=== PATIENT | male | born 1940 | race American Indian/Alaskan Native ===

== ENCOUNTER 2017-07-14 12:26 | Inpatient (IN) | payer BC, MEDICARE ==
[2017-07-14] MEDS ORDERED: CLOPIDOGREL 75 MG TAB ONE (12:30)
[2017-07-14] MEDS ORDERED: NITROGLYCERIN SL TABS 0.4 MG TAB SUBLINGUAL PRN ×3 (12:30→14:18)
[2017-07-14] MEDS ORDERED: HEPARIN SODIUM,PORCINE 5,000 UNIT/ML 1 ML VIAL IV STA (12:30)
[2017-07-14] MEDS ORDERED: HEPARIN SOD,PORK IN 0.45% NACL 25,000 UNIT in 0.45% NACL 1 500ML.BAG IV SCH (12:30)
[2017-07-14] MEDS ORDERED: ASPIRIN 81 MG PO STA (12:30)
[2017-07-14] MEDS ORDERED: SODIUM CHLORIDE 0.9% 1,000 ML IV STA (12:30)
[2017-07-14 12:34] LABS: Glucose,Whole Blood 163 mg/dL (75-99)
--- NOTE | 2017-07-14 12:35 | ED ---
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 No headaches no neck stiffness no chest pain at this moment but he had off-and-on chest pain for last 3 days no abdominal pain no frequency urgency dysuria no symptoms of TIA or CVA - Related Data Allergies Allergy/AdvReac Type Severity Reaction Status Date / Time No Known Allergies Allergy Verified 07/14/17 12:31 Review of Systems ROS Statement: Those systems with pertinent positive or pertinent negative responses have been documented in the HPI. ROS Other: All systems not noted in ROS Statement are negative. EKG Findings - EKG Comments: EKG Findings:: Him EKG is sinus tachycardia ventricular rate is 1 of 5 AR interval is 168 QRS duration is 106 QT/QTC 342/452 review of this EKG reveals ST depression in lead 1 ST elevation in lead [address] depression in aVL and ST depression in V4 V5 and V6 Past Medical History Past Medical History: Hyperlipidemia, Hypertension, Myocardial Infarction (OR) History of Any Multi-Drug Resistant Organisms: None Reported Past Surgical History: Coronary Bypass/CABG Past Psychological History: No Psychological Hx Reported Smoking Status: Never smoker Past Alcohol Use History: None Reported Past Drug Use History: None Reported General Exam - General Exam Comments Initial Comments: General: The patient is awake and alert, in no distress, and does not appear acutely ill. Skin: Skin is warm and dry and no rashes or lesions are noted. Eye: Pupils are equal, round and reactive to light, extra-ocular movements are intact; there is normal conjunctiva bilaterally. Ears, nose, mouth and throat: There are moist mucous membranes and no oral lesions. Neck: The neck is supple, there is no tenderness or JVD. Cardiovascular: There is a regular rate and rhythm. No murmur, rub or gallop is appreciated. Respiratory: To auscultation bilateral, no wheezing no rhonchi no distress respiratory carlisle noticed Gastrointestinal: Soft, non-distended, non-tender abdomen without masses or organomegaly noted. There is no rebound or guarding present. Bowel sounds are unremarkable. Back: There is no tenderness to palpation in the midline. There is no obvious deformity. Musculoskeletal: Normal ROM, no tenderness, There is no pedal edema. There is no calf tenderness or swelling. No cords were appreciated. Neurological: CN II-XII intact, Cranial nerves III through XII are intact. There are no obvious motor or sensory deficits. Coordination appears grossly intact. Speech is normal. Psychiatric: Cooperative, appropriate mood & affect, normal judgment. Limitations: no limitations Course Vital Signs 07/14/17 07/14/17 12:28 12:37 Temperature 98.6 F Pulse Rate 109 H 115 H Respiratory 20 20 Rate Blood Pressure 132/87 135/82 O2 Sat by Pulse 98 96 Oximetry STEMI alert was initiated Dr. tyler is in the ER seeing the patient right now Critical Care Time Total Critical Care Time: 30 Critical Care Time: Patient had aspirin, Plavix, heparin the ER patient is quite stable at this point STEMI By Reviewing the EKG Spoke with the Generation Manager On-Call Generation Manager Came down Daily ER Foot Worker Was Alert and in Patient Is on His Way to the Foot Worker) Disposition Clinical Impression: STEMI (ST elevation myocardial infarction) Disposition: ADMITTED IP TO THIS HOSP Condition: Good Referrals: Tanner Leigh MD [Primary Care Provider] - 1-2 days
[2017-07-14] MEDS ORDERED: ATORVASTATIN 80 MG TAB PO STA (12:36)
[2017-07-14 12:40] LABS: Basophils % (A) 0 %; Eosinophils # (A) 0.2 k/uL (0-0.7); Eosinophils % (A) 2 %; HCT 49.5 % (39.0-53.0); HGB 17.9 gm/dL (13.0-17.5); Lymphocytes # (A) 0.6 k/uL (1.0-4.8); Lymphocytes % (A) 5 %; MCHC 36.1 g/dL (31.0-37.0); Monocytes # (A) 0.3 k/uL (0-1.0); Monocytes % (A) 2 %; Neutrophils # (A) 10.8 k/uL (1.3-7.7); Neutrophils % (A) 90 %; Platelet Count 161 k/uL (150-450); RBC 5.96 m/uL (4.30-5.90); RDW 13.3 % (11.5-15.5); WBC 12.1 k/uL (3.8-10.6)
[2017-07-14] MEDS ORDERED: MORPHINE SULFATE 4 MG/ML SYRINGE IVP PRN (12:43)
--- NOTE | 2017-07-14 12:43 | XR ---
EXAMINATION TYPE: XR chest 1V portable DATE OF EXAM: 07/14/2017 COMPARISON: NONE HISTORY: Chest pain, STEMI TECHNIQUE: Single AP portable frontal upright view of the chest is obtained. FINDINGS: There are reticular interstitial changes bilaterally seen. There is developing right medi al basilar opacity and suspected central vascular congestion. Post CABG changes with mediastinal clip s and sternal wires is present. The cardiac silhouette size is upper limits of normal with atheroscle rotic aorta. The osseous structures are intact. IMPRESSION: Central vascular congestion and mild interstitial edema, suspect fluid overload state. D eveloping basilar infiltrates are difficult to exclude. Progress study advised.
[2017-07-14] MEDS ORDERED: HEPARIN SODIUM,PORCINE/D5W PMX 25,000 UNIT in DEXTROSE/WATER 1 500ML.BAG IV SCH (12:45)
[2017-07-14] MEDS ORDERED: MIDAZOLAM 2 MG/2 ML VIAL ONE (12:46)
[2017-07-14] MEDS ORDERED: LIDOCAINE 2% INJ 20 MG/ML (20 ML MDV) ONE ×3 (12:46→14:05)
[2017-07-14 12:48] LABS: INR 1.2 (<1.2); Partial Thromboplastin Time 22.4 sec (22.0-30.0); Prothrombin Time 11.8 sec (9.0-12.0)
[2017-07-14 12:50] LABS: Albumin 4.3 g/dL (3.5-5.0); Calcium 9.8 mg/dL (8.4-10.2); Potassium 4.9 mmol/L (3.5-5.1); Total Bilirubin 3.3 mg/dL (0.2-1.3); Total Protein 6.8 g/dL (6.3-8.2)
[2017-07-14] MEDS: MIDAZOLAM 2 MG/2 ML VIAL IVP ONE ×2 (12:50→13:25)
[2017-07-14] MEDS ORDERED: LIDOCAINE 2% INJ 20 MG/ML SQ ONE (12:53)
[2017-07-14] MEDS ORDERED: SODIUM CHLORIDE 0.9% 1,000 ML IV ONE ×2 (12:53→13:14)
[2017-07-14] MEDS ORDERED: TIROFIBAN BOLUS 12.5MG/250 ML BAG IV ONE (13:14)
[2017-07-14] MEDS ORDERED: NOREPINEPHRIN 4 MG-0.9% NS PMX 4 MG/250 ML ML IV ONE (13:14)
[2017-07-14] MEDS ORDERED: TIROFIBAN 12.5MG-250ML NS 250 ML IV ONE (13:15)
[2017-07-14 13:17] LABS: Creatine Kinase MB 13.6 ng/mL (0.0-2.4); Troponin I 0.938 ng/mL (0.000-0.034)
[2017-07-14] MEDS ORDERED: IOPAMIDOL-370 125ML BTL INJ ONE (13:47)
[2017-07-14] MEDS ORDERED: TICAGRELOR 90 MG TAB ONE (13:52)
[2017-07-14] MEDS ORDERED: TICAGRELOR 90 MG TAB PO ONE (13:55)
[2017-07-14] MEDS ORDERED: MORPHINE SULFATE 4 MG/ML SYRINGE ONE (14:03)
[2017-07-14] MEDS ORDERED: IOPAMIDOL-250 100ML BTL INTRAARTER ONE (14:10)
[2017-07-14] MEDS ORDERED: MAG HYDROX/AL HYDROX/SIMETH 30 ML CUP PO PRN (14:18)
[2017-07-14] MEDS ORDERED: RX INFO: IV CONTRAST WAS GIVEN 1 EACH MISC MISCELLANE PRN (14:18)
[2017-07-14] MEDS ORDERED: ATROPINE SULFATE 0.1 MG/ML 10ML SYRINGE IV PRN (14:18)
[2017-07-14] MEDS ORDERED: ZOLPIDEM 5 MG TAB PO PRN (14:18)
[2017-07-14] MEDS ORDERED: TIROFIBAN 12.5MG-250ML NS 250 ML IV SCH (14:30)
[2017-07-14 14:33] LABS: Glucose,Whole Blood 169 mg/dL (75-99)
[2017-07-14] MEDS: SODIUM CHLORIDE 0.9% 1,000 ML IV SCH (15:16)
--- NOTE | 2017-07-14 15:23 | CC ---
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 Patient has been sick for last couple of days. According to the patient's correction officer head, patient was chronically confused and unable to give a very detailed history but he says he had been feeling nausea and vomiting and also had some bowel movement and he was quite diaphoretic. EKG was done in the emergency room which shows evidence of old inferior wall GA. There is marked ST-segment elevation noted in the inferior leads and there was ST-segment depression was noted in the lateral leads. This was suggestive of possible acute ST-segment elevation inferior wall myocardial infarction versus extension non ST-segment elevation myocardial infarction involving the circumflex coronary artery branch. In view of the extensive EKG changes and patient's condition, patient was advised emergent cardiac catheterization. The patient's sons were out of the country and I did discuss with the patient's daughter as well as the patient and they wanted to proceed with a cardiac catheterization for definitive diagnosis. PROCEDURE: Right groin was prepped and draped in the usual manner and the skin was infiltrated with 2% Xylocaine. The right femoral artery was entered using Seldinger technique. A #6- Belarusian sheath was placed in. Selective coronary angiography subsequently was done. The left main coronary artery is short and patent. LAD is totally occluded after the origin of the small septal perforators. The circumflex coronary artery is totally occluded in its proximal portion with a slow antegrade filling of the small obtuse marginal branches noted. Right coronary artery was selectively not cannulated but it has been 100% occluded in the past. The patient's three previous vein grafts were identified. One saphenous vein graft to the right coronary is occluded and two other saphenous vein graft stumps were identified. Only 1 saphenous vein graft to the LAD was patent, which has got ostial stenosis of 99% in the previously placed stent. This graft is attached to the diagonal branch and subsequently it also fills the LAD as well as a retrograde filling of the vein graft to the LAD is noted. The DOMINIQUE graft is widely patent and it is attached to the junction of the diagonal and the LAD and there is good filling of the diagonal as well as LAD. There is 70% stenosis at the anastomotic site of the DOMINIQUE to the diagonal and LAD with a good flow noted. RECOMMENDATIONS: The films were reviewed with Dr. Sage Flynn. In view of the above anatomy, with the patient's extent to the lateral wall changes, he proceeded for the stenting of the saphenous vein graft to the diagonal branch. Patient's condition was discussed with the patient's son on the phone. MMANTONINO / MURRAY: [id number] /
[2017-07-14] MEDS ORDERED: NALOXONE 0.4 MG/ML 1 ML VIAL IV PRN (15:49)
[2017-07-14 16:53] LABS: Glucose,Whole Blood 151 mg/dL (75-99)
--- NOTE | 2017-07-14 17:44 | CONS ---
CONSULTATION Dr. 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 The patient in the emergency room was confused unable to give any detailed history. The patient's police booking officer was here. The patient has not been feeling well for last couple of days. He has been having nausea and vomiting yesterday. He was diaphoretic and he was quite confused. The patient was brought to the emergency room. The EKG showed evidence of old inferior wall myocardial infarction. There was ST-segment elevation in the inferior leads and there was diffuse ST-segment depression in the lateral leads suggestive of possible acute ST-segment elevation myocardial infarction versus old inferior wall myocardial infarction and lateral wall TX in the distribution of the circumflex coronary artery. The patient has a prior history of coronary artery bypass surgery x2. The details of which are not available at present. The patient denies any history of having any recent catheterization done. REVIEW OF SYMPTOMS: Review of the system at present no detailed review of the system is available. The patient has a history of Gilbert syndrome. PAST MEDICAL HISTORY: Includes history of coronary artery bypass surgery x2. History of hypertension, hyperlipidemia, and diabetes. ALLERGIES: The patient is ALLERGIC TO MULTIPLE STATINS AND HAS BEEN HAVING A PROBLEM WITH PROXIMAL MUSCLE WEAKNESS. PHYSICAL EXAMINATION: At present in the emergency room reveals a 77-year-old gentleman who was not in any acute distress but was confused feeling weak. The patient's blood pressure was 132/87 mmHg. Oxygen saturation was 98%. HEENT examination was negative. Neck was supple. There was no increase in jugular venous pressure. First and second heart sounds are normal. No significant murmurs were noted. Lungs were clear to auscultation and percussion. Abdomen was negative. Extremities: Peripheral pulses are 2+. LABORATORY DATA: No lab tests are available at present. EKG shows evidence of old inferior wall myocardial infarction with ST-segment elevation in the inferior leads and ST-segment depression in the lateral leads. IMPRESSION: Acute myocardial infarction. This could be a ST-segment elevation myocardial infarction on the top of an old inferior wall myocardial infarction or the patient may have underlying of ventricular aneurysm. There are diffuse ST-segment depression suggestive of at least non ST-segment elevation myocardial infarction. I did discuss the patient's condition with the patient's daughter as well as police booking officer and would recommend urgent cardiac catheterization and consider primary angioplasty. Daughter wanted to proceed with cardiac catheterization. MMODL / IJN: [id number] /
[2017-07-14] MEDS ORDERED: ALPRAZolam 0.25 MG TAB PO PRN (17:47)
[2017-07-14 18:29] LABS: Troponin I 22.2 ng/mL (0.000-0.034)
--- NOTE | 2017-07-14 18:56 | P.HPIM ---
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 Denied any chest pain at this point of time. Patient apparently was having multiple falls recently. Review of Systems REVIEW OF SYSTEMS: CONSTITUTIONAL: No fever, no malaise, no fatigue. HEENT: No recent visual problems or hearing problems. Denied any sore throat. CARDIOVASCULAR: No orthopnea, PND, no palpitations, no syncope. PULMONARY: No shortness of breath, no cough, no hemoptysis. GASTROINTESTINAL: No diarrhea, no nausea, no vomiting, no abdominal pain. Normoactive bowel sounds. NEUROLOGICAL: No headaches, no weakness, no numbness. HEMATOLOGICAL: Denies any bleeding or petechiae. GENITOURINARY: Denies any burning micturition, frequency, or urgency. MUSCULOSKELETAL/RHEUMATOLOGICAL: Denies any joint pain, swelling, or any muscle pain. ENDOCRINE: Denies any polyuria or polydipsia. The rest of the 14-point review of systems is negative. Past Medical History Past Medical History: Coronary Artery Disease (CAD), Chest Pain / Angina, Diabetes Mellitus, GERD/Reflux, Hyperlipidemia, Hypertension, Myocardial Infarction (MO), Prostate Disorder, Thyroid Disorder Additional Past Medical History / Comment(s): Previous MO, Pt has chronic ST elevation, recurrent falls lately, IDDM type II, BPH, hypothyroidism. Last Myocardial Infarction Date:: 07/14/17 History of Any Multi-Drug Resistant Organisms: None Reported Past Surgical History: Coronary Bypass/CABG, Heart Catheterization, Heart Catheterization With Stent Additional Past Surgical History / Comment(s): 07/14/17 PCI with stent in diagonal graft, pt has had CABG done twice with 1st time in 1980- 6 vessel and 2nd time in 1988-4vessel, PCI with stent in 2013, colonoscopy, bilateral cataract removals/lens implants. Past Anesthesia/Blood Transfusion Reactions: No Reported Reaction Date of Last Stent Placement:: 07/14/17 Smoking Status: Never smoker - Past Family History Father Family Medical History: Myocardial Infarction (MO) Additional Family Medical History / Comment(s): Father of a MO at the age of 63 yrs. Mother History Unknown: Yes Additional Family Medical History / Comment(s): Mother when pt was 2 months old. Medications and Allergies Home Medications Medication Instructions Recorded Confirmed Type ALPRAZolam [Xanax] 0.5 mg PO TID PRN 07/14/17 07/14/17 History Alendronate Sodium [Fosamax] 70 mg PO Q7D 07/14/17 07/14/17 History Atenolol [Tenormin] 50 mg PO HS 07/14/17 07/14/17 History Clopidogrel [Plavix] 75 mg PO HS 07/14/17 07/14/17 History Dulaglutide [Trulicity] 1.5 mg SQ Q7D 07/14/17 07/14/17 History Ezetimibe [Zetia] 10 mg PO HS 07/14/17 07/14/17 History Famotidine [Pepcid] 20 mg PO DAILY PRN 07/14/17 07/14/17 History Fenofibrate 54 mg PO HS 07/14/17 07/14/17 History Fexofenadine HCl [Ellie Allergy] 180 mg PO HS PRN 07/14/17 07/14/17 History Levothyroxine Sodium [Synthroid] 200 mcg PO HS 07/14/17 07/14/17 History [place]-3 Acid Ethyl Esters [Lovaza] 1 gm PO HS 07/14/17 07/14/17 History Omeprazole 20 mg PO BID PRN 07/14/17 07/14/17 History Ramipril 10 mg PO HS 07/14/17 07/14/17 History Repaglinide [Prandin] 1 mg PO AC-TID 07/14/17 07/14/17 History Sertraline [Zoloft] 50 mg PO HS 07/14/17 07/14/17 History Vitamin D3(Unknown Dose) 1 tab PO HS 07/14/17 07/14/17 History Allergies Allergy/AdvReac Type Severity Reaction Status Date / Time No Known Allergies Allergy Verified 07/14/17 12:31 Physical Exam Vitals: Vital Signs Temp Pulse Resp BP Pulse Ox 07/14/17 18:00 108 H 18 111/69 95 07/14/17 17:30 107 H 19 118/82 96 07/14/17 16:30 106 H 16 112/75 96 07/14/17 16:15 101 H 22 113/79 96 07/14/17 16:00 104 H 26 H 115/77 96 07/14/17 15:45 104 H 29 H 116/77 96 07/14/17 15:30 102 H 21 112/76 96 07/14/17 15:15 104 H 24 109/73 95 07/14/17 15:14 95 07/14/17 15:00 104 H 18 104/75 97 07/14/17 14:45 97.9 F 101 H 16 97/68 95 07/14/17 12:37 115 H 20 135/82 96 07/14/17 12:28 98.6 F 109 H 20 132/87 98 Intake and Output 07/14/17 07/14/17 07/14/17 06:59 14:59 22:59 Intake Total 686.74 346.8 Output Total 200 200 Balance 486.74 146.8 Intake: IV 686.74 346.8 Sodium Chloride 0.9% 1, 300 000 ml @ 75 mls/hr IV . [id number] JORGE Rx#:[id number] Tirofiban 12.5MG-250Ml Ns 46.8 250 ml @ 0.15 MCG/KG/MIN 11.808 mls/hr IV . [id number] JORGE Rx#:[id number] Output: Urine 200 200 Other: Voiding Method Urinal # Emes[place] 1 Weight 65.6 kg PHYSICAL EXAMINATION: GENERAL: The patient is alert and oriented x3, not in any acute distress. Well developed, well nourished. HEENT: Pupils are round and equally reacting to light. EOMI. No scleral icterus. No conjunctival pallor. Normocephalic, atraumatic. No pharyngeal erythema. No thyromegaly. CARDIOVASCULAR: S1 and S2 present. No murmurs, rubs, or gallops. PULMONARY: Chest is clear to auscultation, no wheezing or crackles. ABDOMEN: Soft, nontender, nondistended, normoactive bowel sounds. No palpable organomegaly. MUSCULOSKELETAL: No joint swelling or deformity. EXTREMITIES: No cyanosis, clubbing, or pedal edema. NEUROLOGICAL: Gross neurological examination did not reveal any focal deficits. SKIN: No rashes. Results CBC & Chem 7: 07/14/17 12:15 07/14/17 12:15 Labs: Abnormal Lab Results - Last 24 Hours (Table) 07/14/17 07/14/17 07/14/17 Range/Units 12:15 12:15 12:15 WBC 12.1 H (3.8-10.6) k/uL RBC 5.96 H (4.30-5.90) m/uL Hgb 17.9 H (13.0-17.5) gm/dL Neutrophils # 10.8 H (1.3-7.7) k/uL Lymphocytes # 0.6 L (1.0-4.8) k/uL INR (<1.2) BUN 22 H (9-20) mg/dL Glucose 176 H (74-99) mg/dL POC Glucose (mg/dL) (75-99) mg/dL Total Bilirubin 3.3 H (0.2-1.3) mg/dL Total Creatine Kinase 205 H (55-170) U/L CK-MB (CK-2) 13.6 H* (0.0-2.4) ng/mL Troponin I 0.938 H* (0.000-0.034) ng/mL 07/14/17 07/14/17 07/14/17 Range/Units 12:15 12:31 14:31 WBC (3.8-10.6) k/uL RBC (4.30-5.90) m/uL Hgb (13.0-17.5) gm/dL Neutrophils # (1.3-7.7) k/uL Lymphocytes # (1.0-4.8) k/uL INR 1.2 H (<1.2) BUN (9-20) mg/dL Glucose (74-99) mg/dL POC Glucose (mg/dL) 163 H 169 H (75-99) mg/dL Total Bilirubin (0.2-1.3) mg/dL Total Creatine Kinase (55-170) U/L CK-MB (CK-2) (0.0-2.4) ng/mL Troponin I (0.000-0.034) ng/mL 07/14/17 07/14/17 Range/Units 16:51 17:37 WBC (3.8-10.6) k/uL RBC (4.30-5.90) m/uL Hgb (13.0-17.5) gm/dL Neutrophils # (1.3-7.7) k/uL Lymphocytes # (1.0-4.8) k/uL INR (<1.2) BUN (9-20) mg/dL Glucose (74-99) mg/dL POC Glucose (mg/dL) 151 H (75-99) mg/dL Total Bilirubin (0.2-1.3) mg/dL Total Creatine Kinase 1364 H (55-170) U/L CK-MB (CK-2) 148.0 H* (0.0-2.4) ng/mL Troponin I 22.200 H* (0.000-0.034) ng/mL Thrombosis Risk Factor Assmnt - Choose All That Apply Any of the Below Risk Factors Present?: Yes Each Factor Represents 1 point: Acute [place] Other Risk Factors: Yes Each Risk Factor Represents 3 Points: Age 75 years or older Other congenital or acquired thrombophilia - If yes, enter type in comment: No Thrombosis Risk Factor Assessment Total Risk Factor Score: 4 Thrombosis Risk Factor Assessment Level: Moderate Risk Assessment and Plan Plan: -Chest pain, ST elevation myocardial infarction: Patient is status post cardiac catheterization and stenting patient is on dual antiplatelet therapy because of low blood pressures start him on low-dose of beta ping lisinopril will be held because of his low blood pressure issue. Echocardiogram will be obtained for tomorrow. Patient had issues with statin in the past because of which she patient will be started on new medications for hyperlipidemia as an outpatient by cardiology -History of coronary artery disease -Type 2 diabetes mellitus, patient is on trulicity which will be continued along with sliding scale here -Hyperlipidemia -Hypertension -Benign prostatic hypertrophy -Hypothyroidism
[2017-07-14 19:01] LABS: Magnesium 1.7 mg/dL (1.6-2.3); Phosphorus 2.4 mg/dL (2.5-4.5)
[2017-07-14] MEDS ORDERED: ONDANSETRON 4 MG/2 ML VIAL IVP PRN ×2 (19:17→19:24)
[2017-07-14] MEDS ORDERED: Magnesium Replacement Protocol 1 EACH MISC MISCELLANE PRN (19:23)
[2017-07-14] MEDS ORDERED: MAGNESIUM SULFATE-D5W PMX 1 GM in DEXTROSE/WATER 1 100ML.BAG IVPB ONE (19:30)
[2017-07-14 20:05] LABS: Glucose,Whole Blood 223 mg/dL (75-99)
[2017-07-14] MEDS: INSULIN ASPART 100 UNIT/ML 1 ML 10 ML VIAL SQ SCH (20:19)
[2017-07-14] MEDS: SERTRALINE 50 MG TAB PO SCH (20:45)
--- NOTE | 2017-07-14 20:50 | CC ---
CARDIAC CATHETERIZATION REPORT DATE OF SERVICE: 07/14/2017 PROCEDURE: Percutaneous transluminal coronary angioplasty and stenting of saphenous vein graft to the major diagonal branch of left anterior descending. PERFORMED BY: Dr. Sage Flynn. Moderate conscious sedation time was for 82 minutes. Patient was administered a combination of Versed, Benadryl and morphine and his oxygen saturation, hemodynamics and EKG were monitored closely. 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 Clinical picture suggested that of acute ischemic syndrome with possibly a diagonal distribution ischemia. He underwent evaluation and coronary angiography by Dr. Nasra Caraballo. I assisted Dr. Caraballo in the performance of coronary angiography. Study revealed that his DOMINIQUE to LAD was patent and was supplying the diagonal branch, which was probably a second diagonal, and the LAD as well. LAD had mild to moderate diffuse disease throughout and it was also opacifying the branches of the circumflex and distal RCA as well. Another vein graft was identified and this vein graft was attached to the diagonal branch with another conduit that jumped to the LAD as well. This was an important graft and this had a 99% stenosis in the proximal portion, including the ostium with haziness suggestive of thrombus and calcification. This appeared to be the culprit lesion. There were at least 3 other vein graft stumps that were identified, were all occluded. He was advised intervention of the diagonal graft with a 99% stenosis calcification and thrombus and I proceeded to perform the intervention expeditiously. PROCEDURE NOTE: The existing 6-Cymraes introducer in the right femoral artery was used to perform the procedure. I used a standard right Alessandro type guide catheter to cannulate the vein graft to the diagonal. I used a Whisper wire and with this I crossed the lesion and kept the wire in the distal branch of the diagonal vessel. I could not advance a 2.5 balloon and therefore I used a 1.5, 12 mm long mini Trek balloon and with this I pre- dilated the lesion and then went to a 2.0 caliber NC Euphora balloon of 12 mm length and this was used to dilate the ostial and proximal lesion. I then advanced a 3.0 caliber 15 mm long NC Trek balloon and inflated up to 14 atmospheres. Significant angiographic improvement was seen with resolution of ST-segment depression in leads I, aVL, and the inferior ST-segment elevation also seemed to improve. The patient was hypotensive very briefly and I used Levophed 2.5 mcg for maybe about 5-7 minutes. IV fluids were also given. Blood pressure was very well maintained, about 110 mmHg systolic. I then felt that the guide support was inadequate to advance the stent and therefore I took the guide out and switched over to a left coronary bypass guide catheter of 6-Cymraes caliber and I had a better seating of the guide within the ostium of the graft. I used a run-through wire and crossed the lesion and wire was kept distally. With the left bypass guide and run-through wire, I then advanced a 3.5 caliber, 18 mm long Xience stent and deployed this with the proximal end of the stent right at the ostium and the distal end into the previously stented segment. Apparently this previous stent was placed more than 10 years ago and the stent was longer, but the proximal half of the stent right from the ostium of the vein graft had a 99% stenosis and therefore the proximal 1/2 or 2/3 of the previous stent now has a 3.5 caliber Xience stent inside it. I deployed it at 16 atmospheres and then I went back with a 15 mm long NC Trek balloon of 4.0 caliber and post dilated this stent. Excellent angiographic result was achieved with a remarkably good SALOME-3 flow that extended both into the diagonal and LAD. The patient received Aggrastat infusion and bolus as per protocol and he also received 180 mg of Brilinta orally. Excellent angiographic result without complication was achieved with remarkably good angiographic appearance of the diagonal and LAD vessels as well as the distal opacification of the collaterals supplying the circumflex and RCA distribution. The sheath was then taken out and a Perclose device used to secure hemostasis. Excellent hemostasis was secured. The patient was hemodynamically stable with excellent angiographic result and he was free of any symptoms of chest discomfort. He was then transferred to the intensive care unit. Findings, details and results were discussed with the patient as well as his daughter who was in the waiting room. I also spoke by phone to both of Dr. Rose's sons, who are also dermatologists. MMODL / IJN: [id number] /
[2017-07-14] MEDS ORDERED: METOPROLOL TARTRATE 25 MG TAB PO SCH (21:00)
[2017-07-14] MEDS ORDERED: METOPROLOL TARTRATE 12.5 MG TAB PO SCH (21:00)
[2017-07-14 21:04] LABS: Glucose,Whole Blood 159 mg/dL (75-99)
[2017-07-14] MEDS: LEVOTHYROXINE 100 MCG TAB PO SCH (23:00)
[2017-07-15 01:08] LABS: Troponin I 50.2 ng/mL (0.000-0.034)
[2017-07-15] MEDS: SODIUM CHLORIDE 0.9% 1,000 ML IV SCH (03:12)
[2017-07-15 06:00] LABS: Basophils % (A) 0 %; Eosinophils # (A) 0.1 k/uL (0-0.7); Eosinophils % (A) 1 %; HGB 16.3 gm/dL (13.0-17.5); Lymphocytes % (A) 9 %; MCH 29.3 pg (25.0-35.0); MCHC 33.9 g/dL (31.0-37.0); MCV 86.6 fL (80.0-100.0); Mean Platelet Volume 8.1; Monocytes # (A) 0.6 k/uL (0-1.0); Monocytes % (A) 5 %; Neutrophils # (A) 9.2 k/uL (1.3-7.7); Neutrophils % (A) 84 %; Platelet Count 166 k/uL (150-450); RBC 5.55 m/uL (4.30-5.90); RDW 13.4 % (11.5-15.5)
[2017-07-15 06:34] LABS: Calcium 9.2 mg/dL (8.4-10.2); Potassium 4.8 mmol/L (3.5-5.1)
[2017-07-15 06:49] LABS: T4, Free (Free Thyroxine) 1.58 ng/dL (0.78-2.19)
[2017-07-15 06:57] LABS: Glucose,Whole Blood 122 mg/dL (75-99)
[2017-07-15] MEDS ORDERED: REPAGLINIDE 1 MG TAB PO SCH (07:30)
[2017-07-15 07:42] LABS: Troponin I 51.5 ng/mL (0.000-0.034)
[2017-07-15] MEDS: INSULIN ASPART 100 UNIT/ML 1 ML 10 ML VIAL SQ SCH ×4 (08:33→21:10)
[2017-07-15] MEDS: PANTOPRAZOLE 40 MG/10 ML VIAL IVP SCH (08:40)
[2017-07-15] MEDS: ASPIRIN 81 MG PO SCH (08:40)
[2017-07-15] MEDS: TICAGRELOR 90 MG TAB PO SCH ×2 (08:41→21:07)
[2017-07-15] MEDS: LEVOTHYROXINE 100 MCG TAB PO SCH (08:42)
[2017-07-15] MEDS ORDERED: ATORVASTATIN 20 MG TAB PO SCH ×3 (09:00→21:00)
[2017-07-15] MEDS ORDERED: METOPROLOL TARTRATE 50 MG TAB PO ONE (09:00)
[2017-07-15] MEDS ORDERED: LISINOPRIL 10 MG TAB PO SCH ×2 (09:00)
[2017-07-15] MEDS ORDERED: LISINOPRIL 5 MG TAB PO SCH (09:00)
[2017-07-15] MEDS ORDERED: ASPIRIN 325 MG TAB PO SCH ×2 (09:00)
[2017-07-15] MEDS: REPAGLINIDE 1 MG TAB PO SCH ×3 (09:30→17:59)
[2017-07-15 11:44] LABS: Glucose,Whole Blood 180 mg/dL (75-99)
[2017-07-15] MEDS: ALPRAZolam 0.25 MG TAB PO PRN ×2 (12:18→21:07)
[2017-07-15 14:03] VITALS: BMI 26.6
--- NOTE | 2017-07-15 14:05 | ECHOF ---
Referral Reason:Posterolat NSTEMI, PCI of Diag graft MEASUREMENTS -------- HEIGHT: 167.6 cm WEIGHT: 65.3 kg BP: 104/64 IVSd: 1.0 cm (0.6 - 1.1) LVIDd: 5.0 cm (3.9 - 5.3) LVPWd: 1.1 cm (0.6 - 1.1) IVSs: 1.7 cm LVIDs: 3.9 cm LVPWs: 1.3 cm LAESV Index (A-L): 20.00 ml/m Ao Diam: 3.7 cm (2.0 - 3.7) AV Cusp: 1.4 cm (1.5 - 2.6) LA Diam: 3.6 cm (2.7 - 3.8) MV EXCURSION: 18.395 mm (> 18.000) MV EF SLOPE: 100 mm/s (70 - 150) EPSS: 1.1 cm AV maxP.95 mmHg AV meanP.99 mmHg AR PHT: 287 ms RAP: 5.00 mmHg RVSP: 13.09 mmHg FINDINGS -------- Sinus rhythm. This was a technically good study. The left ventricular size is normal. Left ventricular wall thickness is normal. Overall left vent ricular systolic function is moderately impaired with, an EF between 35 - 40 %. Basal anterior LV w all motion is hypokinetic. Basal inferoseptal LV wall motion is hypokinetic. Mid inferoseptal L V wall motion is hypokinetic. Inferiorlateral Hypokinesis The right ventricle is normal in size and function. The left atrium is normal in size. The right atrium is normal in size. Aortic valve is trileaflet and is mildly thickened. There is mild aortic valve sclerosis. There i s mild aortic regurgitation. Peak/mean gradient across the Aortic Valve is 9.95mmHg / 5.99mmHg. The mitral valve leaflets are mildly thickened. Mild mitral regurgitation is present. Mild tricuspid regurgitation present. The right ventricular systolic pressure, as measured by Doppl er, is 13.09mmHg. Pulmonic valve appears structurally normal. The aortic root size is normal. The pericardium is normal. CONCLUSIONS -------- 1. Sinus rhythm. 2. This was a technically good study. 3. The left ventricular size is normal. 4. Left ventricular wall thickness is normal. 5. Overall left ventricular systolic function is moderately impaired with, an EF between 35 - 40 %. 6. Basal anterior LV wall motion is hypokinetic. 7. Basal inferoseptal LV wall motion is hypokinetic. 8. Mid inferoseptal LV wall motion is hypokinetic. 9. Inferiorlateral Hypokinesis 10. The right ventricle is normal in size and function. 11. The left atrium is normal in size. 12. The right atrium is normal in size. 13. Aortic valve is trileaflet and is mildly thickened. 14. There is mild aortic valve sclerosis. 15. There is mild aortic regurgitation. 16. Peak/mean gradient across the Aortic Valve is 9.95mmHg / 5.99mmHg. 17. The mitral valve leaflets are mildly thickened. 18. Mild mitral regurgitation is present. 19. Mild tricuspid regurgitation present. 20. The right ventricular systolic pressure, as measured by Doppler, is 13.09mmHg. 21. Pulmonic valve appears structurally normal. 22. The aortic root size is normal. 23. The pericardium is normal. ROOF SERVICE TECHNICIAN: Lanie Durbin RDCS
--- NOTE | 2017-07-15 14:13 | P.PN ---
Subjective 77-year-old male admitted for the ST elevation microinfarction underwent stenting of saphenous vein graft to diagonal branch. Patient heart rate is in 90s. His energy is on beta ping patient blood pressure is borderline but still and miserable because of the ejection fraction which is low at 35-40%. Does have episodes of anxiety patient's Xanax dose frequency was increased. Constitutional: Denied any fatigue denied any fever. Cardio vascular: denied any chest pain, palpitations Gastrointestinal denied any nausea vomiting Pulmonary: Denied any shortness of breath cough Neurologic denied any new focal deficits Objective - Vital Signs Vital signs: Vital Signs Temp 98.2 F 07/15/17 12:00 Pulse 90 07/15/17 14:00 Resp 21 07/15/17 14:00 BP 116/71 07/15/17 14:00 Pulse Ox 93 L 07/15/17 14:00 Intake & Output 07/14/17 07/15/17 07/15/17 18:59 06:59 18:59 Intake Total 1033.54 994.3 630 Output Total 400 700 150 Balance 633.54 294.3 480 Weight 65.6 kg 74.8 kg 74.8 kg Intake: IV 1033.54 994.3 150 Sodium Chloride 0.9% 1, 300 900 150 000 ml @ 75 mls/hr IV . [id number] [facility] Rx#:[id number] Tirofiban 12.5MG-250Ml Ns 46.8 94.3 250 ml @ 0.15 MCG/KG/MIN 11.808 mls/hr IV . [id number] [facility] Rx#:[id number] Oral 480 Output: Urine 400 700 150 Other: Voiding Method Urinal Urinal Urinal # Emeses 1 0 - Exam PHYSICAL EXAMINATION: GENERAL: The patient is alert and oriented x3, not in any acute distress. Well developed, well nourished. HEENT: Pupils are round and equally reacting to light. EOMI. No scleral icterus. No conjunctival pallor. Normocephalic, atraumatic. No pharyngeal erythema. No thyromegaly. CARDIOVASCULAR: S1 and S2 present. No murmurs, rubs, or gallops. PULMONARY: Chest is clear to auscultation, no wheezing or crackles. ABDOMEN: Soft, nontender, nondistended, normoactive bowel sounds. No palpable organomegaly. MUSCULOSKELETAL: No joint swelling or deformity. EXTREMITIES: No cyanosis, clubbing, or pedal edema. NEUROLOGICAL: Gross neurological examination did not reveal any focal deficits. SKIN: No rashes. - Labs CBC & Chem 7: 07/15/17 05:18 07/15/17 05: Labs: Abnormal Lab Results - Last 24 Hours (Table) 07/14/17 07/14/17 07/14/17 Range/Units 12:15 14:31 16:51 WBC (3.8-10.6) k/uL Neutrophils # (1.3-7.7) k/uL Sodium (137-145) mmol/L Carbon Dioxide (22-30) mmol/L Glucose (74-99) mg/dL POC Glucose (mg/dL) 169 H 151 H (75-99) mg/dL Phosphorus 2.4 L (2.5-4.5) mg/dL Creatine Kinase (55-170) U/L Total Creatine Kinase (55-170) U/L CK-MB (CK-2) (0.0-2.4) ng/mL Troponin I (0.000-0.034) ng/mL 07/14/17 07/14/17 07/14/17 Range/Units 17:37 20:04 21:02 WBC (3.8-10.6) k/uL Neutrophils # (1.3-7.7) k/uL Sodium (137-145) mmol/L Carbon Dioxide (22-30) mmol/L Glucose (74-99) mg/dL POC Glucose (mg/dL) 223 H 159 H (75-99) mg/dL Phosphorus (2.5-4.5) mg/dL Creatine Kinase (55-170) U/L Total Creatine Kinase 1364 H (55-170) U/L CK-MB (CK-2) 148.0 H* (0.0-2.4) ng/mL Troponin I 22.200 H* (0.000-0.034) ng/mL 07/14/17 07/15/17 07/15/17 Range/Units 23:54 05:18 05:18 WBC 11.0 H (3.8-10.6) k/uL Neutrophils # 9.2 H (1.3-7.7) k/uL Sodium 136 L (137-145) mmol/L Carbon Dioxide 20 L (22-30) mmol/L Glucose 119 H (74-99) mg/dL POC Glucose (mg/dL) (75-99) mg/dL Phosphorus (2.5-4.5) mg/dL Creatine Kinase (55-170) U/L Total Creatine Kinase 2371 H (55-170) U/L CK-MB (CK-2) 161.0 H* (0.0-2.4) ng/mL Troponin I 50.200 H* (0.000-0.034) ng/mL 07/15/17 07/15/17 07/15/17 Range/Units :18 05:18 06:54 WBC (3.8-10.6) k/uL Neutrophils # (1.3-7.7) k/uL Sodium (137-145) mmol/L Carbon Dioxide (22-30) mmol/L Glucose (74-99) mg/dL POC Glucose (mg/dL) 122 H (75-99) mg/dL Phosphorus (2.5-4.5) mg/dL Creatine Kinase 2182 H (55-170) U/L Total Creatine Kinase (55-170) U/L CK-MB (CK-2) 129.0 H* (0.0-2.4) ng/mL Troponin I 51.500 H* (0.000-0.034) ng/mL 07/15/17 Range/Units 11:42 WBC (3.8-10.6) k/uL Neutrophils # (1.3-7.7) k/uL Sodium (137-145) mmol/L Carbon Dioxide (22-30) mmol/L Glucose (74-99) mg/dL POC Glucose (mg/dL) 180 H (75-99) mg/dL Phosphorus (2.5-4.5) mg/dL Creatine Kinase (55-170) U/L Total Creatine Kinase (55-170) U/L CK-MB (CK-2) (0.0-2.4) ng/mL Troponin I (0.000-0.034) ng/mL Assessment and Plan Plan: -Chest pain, ST elevation myocardial infarction: Patient is status post cardiac catheterization and stenting patient is on dual antiplatelet therapy because of low blood pressures start him on low-dose of beta ping . echocardiogram did show low ejection fraction and patient is also on lisinopril because of that. -congestive heart failure possibly acute systolic dysfunction not in acute exacerbation -History of coronary artery disease -Type 2 diabetes mellitus, patient is on trulicity which will be continued along with sliding scale here -Hyperlipidemia -Hypertension -Benign prostatic hypertrophy -Hypothyroidism
[2017-07-15 14:48] LABS: Hemoglobin A1C 6.2 % (4.0-6.0)
[2017-07-15] MEDS ORDERED: FUROSEMIDE 10 MG/ML 2 ML VIAL IV ONE (15:37)
[2017-07-15 15:42] LABS: Creatine Kinase 1304 U/L (55-170)
[2017-07-15] MEDS ORDERED: ALPRAZolam 0.25 MG TAB PO SCH (16:00)
[2017-07-15] MEDS ORDERED: LIDOCAINE URO-JET JELLY 2% 5 ML KIT URETHRAL ONE (16:08)
[2017-07-15 16:13] LABS: Creatine Kinase MB 42.7 ng/mL (0.0-2.4)
[2017-07-15 17:01] LABS: Appearance,Urine Clear (Clear); Bilirubin,Urine Negative (Negative); Blood,Urine Large (Negative); Color,Urine Yellow; Glucose,Urine (UA) Negative (Negative); Ketones,Urine Negative (Negative); Leukocyte Esterase,Urine Negative (Negative); Mucus,Urine Rare /hpf; Nitrite,Urine Negative (Negative); PH, Urine 5.5 (5.0-8.0); Protein,Urine Negative (Negative); RBC,Urine 109 /hpf (0-5); Specific Gravity,Urine 1.017 (1.001-1.035); Squamous Epithelial Cell,Urine <1 /hpf (0-4); Urobilinogen,Urine <2.0 mg/dL (<2.0); WBC,Urine 19 /hpf (0-5)
[2017-07-15 17:22] LABS: Glucose,Whole Blood 102 mg/dL (75-99)
[2017-07-15] MEDS: TAMSULOSIN 0.4 MG CAP.ER.24H PO SCH (17:59)
--- NOTE | 2017-07-15 19:57 | PN ---
PROGRESS NOTE DATE OF SERVICE: 07/15/2017. HISTORY: The patient came with an acute myocardial infarction. The patient underwent cardiac catheterization, and the patient underwent stent to the saphenous vein graft to the diagonal branch. The patient is feeling well. He is sitting comfortably in the bed. Denies any chest pain or shortness of breath. Denies any nausea or vomiting. PHYSICAL EXAM: Blood pressure 117/71 mmHg. Respirations are not labored. First and second heart sounds are normal. Lungs are clinically clear to auscultation and percussion. LABORATORY AND DIAGNOSTIC DATA: Patient's hemoglobin is 16.3. Troponin is 51 and CPK was 2370. 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 Patient had one episode of nonsustained tachycardia last night. ASSESSMENT AND PLAN: The patient clinically remains stable. We will increase the dose of Lopressor to 25 mg b.i.d. The patient will be ambulated in the room. The patient had paroxysmal muscle weakness with statin in the past. The patient is being followed at [facility] and has . MMODL / IJN: [id number] /
[2017-07-15 20:36] LABS: Glucose,Whole Blood 160 mg/dL (75-99)
[2017-07-15] MEDS ORDERED: EZETIMIBE 10 MG TAB PO SCH (21:00)
[2017-07-15] MEDS ORDERED: FENOFIBRATE 54 MG TAB PO SCH (21:00)
[2017-07-15] MEDS: ATORVASTATIN 20 MG TAB PO SCH (21:07)
[2017-07-15] MEDS: SERTRALINE 50 MG TAB PO SCH (21:08)
[2017-07-15] MEDS: LISINOPRIL 5 MG TAB PO SCH (21:08)
[2017-07-15] MEDS: METOPROLOL TARTRATE 25 MG TAB PO SCH (21:08)
[2017-07-16 04:53] LABS: Basophils % (A) 0 %; Eosinophils # (A) 0.2 k/uL (0-0.7); Eosinophils % (A) 2 %; HGB 16.5 gm/dL (13.0-17.5); Lymphocytes # (A) 1.2 k/uL (1.0-4.8); Lymphocytes % (A) 13 %; MCH 29.6 pg (25.0-35.0); MCHC 35.2 g/dL (31.0-37.0); MCV 84.2 fL (80.0-100.0); Mean Platelet Volume 7.9; Monocytes # (A) 0.6 k/uL (0-1.0); Monocytes % (A) 6 %; Neutrophils # (A) 7.2 k/uL (1.3-7.7); Neutrophils % (A) 78 %; Platelet Count 142 k/uL (150-450); RBC 5.58 m/uL (4.30-5.90); RDW 13.1 % (11.5-15.5); WBC 9.3 k/uL (3.8-10.6)
[2017-07-16 05:14] LABS: Calcium 9.5 mg/dL (8.4-10.2); Phosphorus 3.3 mg/dL (2.5-4.5)
[2017-07-16 07:05] LABS: Glucose,Whole Blood 114 mg/dL (75-99)
[2017-07-16] MEDS: INSULIN ASPART 100 UNIT/ML 1 ML 10 ML VIAL SQ SCH ×4 (07:45→20:47)
[2017-07-16] MEDS: PANTOPRAZOLE 40 MG/10 ML VIAL IVP SCH (07:45)
[2017-07-16] MEDS: REPAGLINIDE 1 MG TAB PO SCH ×3 (07:45→17:28)
[2017-07-16] MEDS: LEVOTHYROXINE 100 MCG TAB PO SCH (07:45)
[2017-07-16] MEDS: ASPIRIN 81 MG PO SCH (07:46)
[2017-07-16] MEDS: TICAGRELOR 90 MG TAB PO SCH ×2 (07:46→20:39)
[2017-07-16] MEDS: METOPROLOL TARTRATE 25 MG TAB PO SCH (07:46)
[2017-07-16 11:29] LABS: Glucose,Whole Blood 149 mg/dL (75-99)
--- NOTE | 2017-07-16 14:06 | P.PN ---
Subjective 77-year-old male admitted for the ST elevation microinfarction underwent stenting of saphenous vein graft to diagonal branch. Patient heart rate is in 90s. His energy is on beta ping patient blood pressure is borderline but still and miserable because of the ejection fraction which is low at 35-40%. Does have episodes of anxiety patient's Xanax dose frequency was increased. 07/16/2017 No overnight events, patient has a [place] catheter in place which are remote will do voiding trial. Patient is not in CHF exacerbation at this time no chest pain. Blood pressure stable with KAREN inhibitor and beta ping. Constitutional: Denied any fatigue denied any fever. Cardio vascular: denied any chest pain, palpitations Gastrointestinal denied any nausea vomiting Pulmonary: Denied any shortness of breath cough Neurologic denied any new focal deficits Objective - Vital Signs Vital signs: Vital Signs Temp 97.9 F 07/16/17 12:00 Pulse 72 07/16/17 12:00 Resp 16 07/16/17 12:00 BP 116/70 07/16/17 12:00 Pulse Ox 98 07/16/17 12:00 Intake & Output 07/15/17 07/16/17 07/16/17 18:59 06:59 18:59 Intake Total 630 600 480 Output Total 825 1115 520 Balance -195 -515 -40 Weight 74.8 kg 72.5 kg Intake: IV 150 Sodium Chloride 0.9% 1, 150 000 ml @ 75 mls/hr IV . [id number] [facility] Rx#:[id number] Oral 480 600 480 Output: Urine 825 1115 520 Other: Voiding Method Urinal Urinal Indwelling Catheter - Exam PHYSICAL EXAMINATION: GENERAL: The patient is alert and oriented x3, not in any acute distress. Well developed, well nourished. HEENT: Pupils are round and equally reacting to light. EOMI. No scleral icterus. No conjunctival pallor. Normocephalic, atraumatic. No pharyngeal erythema. No thyromegaly. CARDIOVASCULAR: S1 and S2 present. No murmurs, rubs, or gallops. PULMONARY: Chest is clear to auscultation, no wheezing or crackles. ABDOMEN: Soft, nontender, nondistended, normoactive bowel sounds. No palpable organomegaly. MUSCULOSKELETAL: No joint swelling or deformity. EXTREMITIES: No cyanosis, clubbing, or pedal edema. NEUROLOGICAL: Gross neurological examination did not reveal any focal deficits. SKIN: No rashes. - Labs CBC & Chem 7: 07/16/17 04:24 07/16/17 04:24 Labs: Abnormal Lab Results - Last 24 Hours (Table) 07/15/17 07/15/17 07/15/17 Range/Units 05:18 15:03 16:27 Plt Count (150-450) k/uL Sodium (137-145) mmol/L BUN (9-20) mg/dL Glucose (74-99) mg/dL POC Glucose (mg/dL) (75-99) mg/dL Hemoglobin A1c 6.2 H (4.0-6.0) % Total Creatine Kinase 1304 H (55-170) U/L CK-MB (CK-2) 42.7 H* (0.0-2.4) ng/mL Troponin I (0.000-0.034) ng/mL Urine Blood Large H (Negative) Urine RBC 109 H (0-5) /hpf Urine WBC 19 H (0-5) /hpf Urine Mucus Rare H (None) /hpf 07/15/17 07/15/17 07/15/17 Range/Units 16:30 17:20 20:35 Plt Count (150-450) k/uL Sodium (137-145) mmol/L BUN (9-20) mg/dL Glucose (74-99) mg/dL POC Glucose (mg/dL) 102 H 160 H (75-99) mg/dL Hemoglobin A1c (4.0-6.0) % Total Creatine Kinase (55-170) U/L CK-MB (CK-2) (0.0-2.4) ng/mL Troponin I 31.400 H* (0.000-0.034) ng/mL Urine Blood (Negative) Urine RBC (0-5) /hpf Urine WBC (0-5) /hpf Urine Mucus (None) /hpf 07/16/17 07/16/17 07/16/17 Range/Units 04:24 04:24 07:03 Plt Count 142 L (150-450) k/uL Sodium 136 L (137-145) mmol/L BUN 26 H (9-20) mg/dL Glucose 111 H (74-99) mg/dL POC Glucose (mg/dL) 114 H (75-99) mg/dL Hemoglobin A1c (4.0-6.0) % Total Creatine Kinase (55-170) U/L CK-MB (CK-2) (0.0-2.4) ng/mL Troponin I (0.000-0.034) ng/mL Urine Blood (Negative) Urine RBC (0-5) /hpf Urine WBC (0-5) /hpf Urine Mucus (None) /hpf 07/16/17 Range/Units 11:27 Plt Count (150-450) k/uL Sodium (137-145) mmol/L BUN (9-20) mg/dL Glucose (74-99) mg/dL POC Glucose (mg/dL) 149 H (75-99) mg/dL Hemoglobin A1c (4.0-6.0) % Total Creatine Kinase (55-170) U/L CK-MB (CK-2) (0.0-2.4) ng/mL Troponin I (0.000-0.034) ng/mL Urine Blood (Negative) Urine RBC (0-5) /hpf Urine WBC (0-5) /hpf Urine Mucus (None) /hpf Microbiology - Last 24 Hours (Table) 07/15/17 16:27 Urine Culture - Preliminary Urine,Catheterized Assessment and Plan Plan: -Chest pain, ST elevation myocardial infarction: Patient is status post cardiac catheterization and stenting patient is on dual antiplatelet therapy because of low blood pressures start him on low-dose of beta ping . echocardiogram did show low ejection fraction and patient is also on lisinopril because of that. -congestive heart failure possibly acute systolic dysfunction not in acute exacerbation -History of coronary artery disease -Type 2 diabetes mellitus, patient is on trulicity which will be continued along with sliding scale here -Hyperlipidemia -Hypertension -Benign prostatic hypertrophy, urinary retention patient was resumed on Flomax discontinue [place] catheter voiding trial today -Hypothyroidism
[2017-07-16 15:05] LABS: Magnesium 1.9 mg/dL (1.6-2.3); Potassium 4.3 mmol/L (3.5-5.1)
[2017-07-16 17:23] LABS: Glucose,Whole Blood 97 mg/dL (75-99)
--- NOTE | 2017-07-16 18:58 | PN ---
PROGRESS NOTE This patient had inferior lateral myocardial infarction. He is recovering well. . He is to be able to get up himself from the chair. The patient's family members express that they will prefer to take him home. Heart rate is 82 per minute. First and second heart sounds are normal. Lungs are fairly clear to auscultation and percussion. Potassium is 3.2. Patient's Lopressor is increased to 50 mg b.i.d. We will continue the rest of the medications. If patient remains stable, the patient can be discharged home tomorrow. MMODL / IJN: [id number] /
[2017-07-16 19:37] LABS: Glucose,Whole Blood 184 mg/dL (75-99)
[2017-07-16] MEDS: SERTRALINE 50 MG TAB PO SCH (20:38)
[2017-07-16] MEDS: ATORVASTATIN 20 MG TAB PO SCH (20:39)
[2017-07-16] MEDS: TAMSULOSIN 0.4 MG CAP.ER.24H PO SCH (20:39)
[2017-07-16] MEDS: LISINOPRIL 5 MG TAB PO SCH (20:39)
[2017-07-16] MEDS: METOPROLOL TARTRATE 50 MG TAB PO SCH (20:40)
[2017-07-17 07:46] LABS: Glucose,Whole Blood 126 mg/dL (75-99)
[2017-07-17] MEDS: TICAGRELOR 90 MG TAB PO SCH (08:02)
[2017-07-17] MEDS: REPAGLINIDE 1 MG TAB PO SCH ×3 (08:02→17:45)
[2017-07-17] MEDS: PANTOPRAZOLE 40 MG/10 ML VIAL IVP SCH (08:02)
[2017-07-17] MEDS: METOPROLOL TARTRATE 50 MG TAB PO SCH (08:02)
[2017-07-17] MEDS: INSULIN ASPART 100 UNIT/ML 1 ML 10 ML VIAL SQ SCH ×3 (08:02→18:45)
[2017-07-17] MEDS: ASPIRIN 81 MG PO SCH (08:02)
[2017-07-17] MEDS: LEVOTHYROXINE 100 MCG TAB PO SCH (08:02)
[2017-07-17 08:40] LABS: Basophils % (A) 0 %; Eosinophils # (A) 0.3 k/uL (0-0.7); Eosinophils % (A) 3 %; HCT 50.4 % (39.0-53.0); HGB 17.4 gm/dL (13.0-17.5); Lymphocytes # (A) 1.1 k/uL (1.0-4.8); Lymphocytes % (A) 10 %; MCH 29.6 pg (25.0-35.0); MCHC 34.5 g/dL (31.0-37.0); MCV 85.7 fL (80.0-100.0); Mean Platelet Volume 7.6; Monocytes # (A) 0.6 k/uL (0-1.0); Monocytes % (A) 5 %; Neutrophils # (A) 8.8 k/uL (1.3-7.7); Neutrophils % (A) 80 %; Platelet Count 168 k/uL (150-450); RBC 5.88 m/uL (4.30-5.90); RDW 13.3 % (11.5-15.5)
[2017-07-17 08:45] LABS: Calcium 9.7 mg/dL (8.4-10.2); Magnesium 1.8 mg/dL (1.6-2.3); Potassium 4.8 mmol/L (3.5-5.1)
--- NOTE | 2017-07-17 17:01 | P.DS ---
Providers Date of admission: 07/14/17 12:52 Attending physician: Mercedez Vaughn MD Consults: 07/14/17 12:31 Consult Physician Stat Consulting Provider: Partha Ferrell Consult Reason/Comments: STEMI ACTIVATION COMPLETE Do you want consulting provider notified?: Yes 07/14/17 12:43 Consult Physician Urgent Consulting Provider: Brandon Caraballo Consult Reason/Comments: STEMI Do you want consulting provider notified?: Yes 07/14/17 14:18 Consult Physician Routine Consulting Provider: Partha Ferrell Consult Reason/Comments: Post Interventional patient Do you want consulting provider notified?: Already Contacted Primary care physician: [facility] Hospital Course: 77-year-old male admitted for the ST elevation microinfarction underwent stenting of saphenous vein graft to diagonal branch. Patient heart rate is in 90s. His energy is on beta ping patient blood pressure is borderline but still and miserable because of the ejection fraction which is low at 35-40%. Does have episodes of anxiety patient's Xanax dose frequency was increased. 07/16/2017 No overnight events, patient has a [place] catheter in place which are remote will do voiding trial. Patient is not in CHF exacerbation at this time no chest pain. Blood pressure stable with KAREN inhibitor and beta ping. 07/17/2017 Patient is urinating okay without any problem today patient does have congestive heart failure chronic systolic dysfunction mildly depressed ejection fraction probably due to acute myocardial infarction. Patient will be discharged today PHYSICAL EXAMINATION: GENERAL: The patient is alert and oriented x3, not in any acute distress. Well developed, well nourished. HEENT: Pupils are round and equally reacting to light. EOMI. No scleral icterus. No conjunctival pallor. Normocephalic, atraumatic. No pharyngeal erythema. No thyromegaly. CARDIOVASCULAR: S1 and S2 present. No murmurs, rubs, or gallops. PULMONARY: Chest is clear to auscultation, no wheezing or crackles. ABDOMEN: Soft, nontender, nondistended, normoactive bowel sounds. No palpable organomegaly. MUSCULOSKELETAL: No joint swelling or deformity. EXTREMITIES: No cyanosis, clubbing, or pedal edema. NEUROLOGICAL: Gross neurological examination did not reveal any focal deficits. SKIN: No rashes. Assessment and Plan Plan: -Chest pain, ST elevation myocardial infarction: Patient is status post cardiac catheterization t. -congestive heart failure possibly acute systolic dysfunction not in acute exacerbation -History of coronary artery disease -Type 2 diabetes mellitus, patient is on trulicity and Prandin which will be continued -Hyperlipidemia -Hypertension -Benign prostatic hypertrophy, urinary retention resolved now -Hypothyroidism Patient Condition at Discharge: Good Plan - Discharge Summary Discharge Rx Participant: No New Discharge Prescriptions: New Aspirin 81 mg PO DAILY #30 chew Atorvastatin [Lipitor] 20 mg PO HS #30 tab Lisinopril [Zestril] 5 mg PO HS #30 tab Metoprolol Tartrate [Lopressor] 50 mg PO BID #60 tab Nitroglycerin Sl Tabs [Nitrostat] 0.4 mg SUBLINGUAL Q5M PRN #25 tab PRN Reason: Chest Pain Ticagrelor [Brilinta] 90 mg PO BID #60 tab Continue Sertraline [Zoloft] 50 mg PO HS Repaglinide [Prandin] 1 mg PO AC-TID Omeprazole 20 mg PO BID PRN PRN Reason: GERD Levothyroxine Sodium [Synthroid] 200 mcg PO HS [place]-3 Acid Ethyl Esters [Lovaza] 1 gm PO HS Fenofibrate 54 mg PO HS Ezetimibe [Zetia] 10 mg PO HS ALPRAZolam [Xanax] 0.5 mg PO TID PRN PRN Reason: Anxiety Alendronate Sodium [Fosamax] 70 mg PO Q7D Dulaglutide [Trulicity] 1.5 mg SQ Q7D Vitamin D3(Unknown Dose) 1 tab PO HS Fexofenadine HCl [Ellie Allergy] 180 mg PO HS PRN PRN Reason: Allergy Symptoms Tamsulosin HCl [Flomax] 0.4 mg PO HS Discontinued Ramipril 10 mg PO HS Atenolol [Tenormin] 50 mg PO HS Famotidine [Pepcid] 20 mg PO DAILY PRN PRN Reason: Heartburn Clopidogrel [Plavix] 75 mg PO HS Discharge Medication List ALPRAZolam [Xanax] 0.5 mg PO TID PRN 07/14/17 [History] Alendronate Sodium [Fosamax] 70 mg PO Q7D 07/14/17 [History] Dulaglutide [Trulicity] 1.5 mg SQ Q7D 07/14/17 [History] Ezetimibe [Zetia] 10 mg PO HS 07/14/17 [History] Fenofibrate 54 mg PO HS 07/14/17 [History] Fexofenadine HCl [Ellie Allergy] 180 mg PO HS PRN 07/14/17 [History] Levothyroxine Sodium [Synthroid] 200 mcg PO HS 07/14/17 [History] [place]-3 Acid Ethyl Esters [Lovaza] 1 gm PO HS 07/14/17 [History] Omeprazole 20 mg PO BID PRN 07/14/17 [History] Repaglinide [Prandin] 1 mg PO AC-TID 07/14/17 [History] Sertraline [Zoloft] 50 mg PO HS 07/14/17 [History] Vitamin D3(Unknown Dose) 1 tab PO HS 07/14/17 [History] Tamsulosin HCl [Flomax] 0.4 mg PO HS 07/15/17 [History] Aspirin 81 mg PO DAILY #30 chew 07/17/17 [Rx] Atorvastatin [Lipitor] 20 mg PO HS #30 tab 07/17/17 [Rx] Lisinopril [Zestril] 5 mg PO HS #30 tab 07/17/17 [Rx] Metoprolol Tartrate [Lopressor] 50 mg PO BID #60 tab 07/17/17 [Rx] Nitroglycerin Sl Tabs [Nitrostat] 0.4 mg SUBLINGUAL Q5M PRN #25 tab 07/17/17 [Rx ] Ticagrelor [Brilinta] 90 mg PO BID #60 tab 07/17/17 [Rx] Follow up Appointment(s)/Referral(s): Tanner Leigh MD [Primary Care Provider] - 1-2 days (Office closed, patient to make appointment. ) Brandon Caraballo MD [STAFF PHYSICIAN] - 07/28/17 2:30 pm Patient Instructions/Handouts: *Surgery [facility] - After Heart Catheterization - [employer]r Instructions, Coronary Artery Disease (DC), Type 2 Diabetes in Adults (DC) Activity/Diet/Wound Care/Special Instructions: Dr. Lydia Wilson is save all operator through [facility] and can be reached at [phone]. computer aided design designer at home will be private pay through [employer] [facility] and can be reached at [phone]. Their fax number is [phone]. Home Care for Nursing, Physical, and Occupational Therapy through [facility] and they can be reached through the physical therapist at [phone]. Their fax number is [phone]. Discharge Disposition: HOME SELF-CARE
--- NOTE | 2017-07-17 17:11 | PN ---
PROGRESS NOTE This patient is status post inferolateral myocardial infarction. He has been feeling well. The patient remains comfortable. He is now able to walk in the room. Blood pressure is 111/65 mmHg. First and second heart sounds are normal. Lungs are clinically clear to auscultation and percussion. The patient is stable. He will be discharged home and will follow up in the office in a week to 10 days. MMODL / IJN: [id number] /
[2017-07-17 17:16] LABS: Glucose,Whole Blood 118 mg/dL (75-99)
[2017-07-17 18:45] VITALS: BP 121/67; PULSE 81; RESP 18; TEMP 98
== END 2017-07-17 18:55 | disposition home or self-care (01) | DRG 247 ==
LOC: EC 12:26 → 6ICU 12:52
PROVIDERS: ADMIT Internal Medicine; ATTEND Internal Medicine
PROC: B2131ZZ Fluoroscopy of Multiple Coronary Artery Bypass Grafts using Low Osmolar Contrast (ICD-10-PCS; 2017-07-14)
PROC: 027034Z Dilation of Coronary Artery, One Artery with Drug-eluting Intraluminal Device, Percutaneous Approach (ICD-10-PCS; principal; 2017-07-14 12:50)
PROC: 4A023N7 Measurement of Cardiac Sampling and Pressure, Left Heart, Percutaneous Approach (ICD-10-PCS; 2017-07-14 12:50)
DX: I21.29 ST elevation (STEMI) myocardial infarction involving other sites (principal); I50.22 Chronic systolic (congestive) heart failure; I25.810 Atherosclerosis of coronary artery bypass graft(s) without angina pectoris; E78.5 Hyperlipidemia, unspecified; E03.9 Hypothyroidism, unspecified; N40.1 Benign prostatic hyperplasia with lower urinary tract symptoms; E11.9 Type 2 diabetes mellitus without complications; I11.0 Hypertensive heart disease with heart failure; F41.9 Anxiety disorder, unspecified; R26.9 Unspecified abnormalities of gait and mobility; R33.8 Other retention of urine; K21.9 Gastro-esophageal reflux disease without esophagitis; E80.4 Gilbert syndrome; I95.9 Hypotension, unspecified; Z96.1 Presence of intraocular lens; Z79.899 Other long term (current) drug therapy; Z79.83 Long term (current) use of bisphosphonates; Z79.890 Hormone replacement therapy; Z82.49 Family history of ischemic heart disease and other diseases of the circulatory system; Z98.41 Cataract extraction status, right eye; Z98.42 Cataract extraction status, left eye; Z95.1 Presence of aortocoronary bypass graft; I25.2 Old myocardial infarction; Z79.4 Long term (current) use of insulin
CPT/HCPCS: 36415; 71045; 80048; 80053; 80061; 81001; 82550; 82553; 83036; 83735; 84100; 84132; 84439; 84443; 84484; 85025; 85610; 85730; 87086; 93005; 93306; 93455; 96374; 99291